=== PATIENT | male | born 1945 | race Caucasian/White ===

== ENCOUNTER → 2018-11-05 | Day surgery (SDC) | payer MEDICARE ==
[~2018-11-05] MED LIST: ALBUTEROL0.63 MG/3 INH; ASPIRIN325 MG PO; CETIRIZINE HCL10 MG PO; FLONASE; FOLIC ACID1 MG PO; GABAPENTIN300 MG PO; LOSARTAN POTASS25 MG PO; MIDAZOLAM HCL 2 MG/2 ML VIAL ONE; OMEPRAZOLE40 MG PO; OR PHACO EYE KIT ONE; PREOP PHACO EYE KIT ONE; SIMVASTATIN20 MG PO; SYMBICORT 16010.2 GM INH; TIZANIDINE HCL4 MG PO; TRAZODONE HCL50 MG PO; TYLENOL WITH C1 EACH PO; VIAGRA50 MG PO; VIT D2 PO; VITAMIN B-121000 MCG PO
[2018-11-05 11:45] VITALS: BP 155/72
== END | disposition home or self-care (01) ==
LOC: OR 14:57
PROVIDERS: ATTEND Ophthalmology
DX: H25.11 Age-related nuclear cataract, right eye (principal); I10 Essential (primary) hypertension; M06.9 Rheumatoid arthritis, unspecified; R00.1 Bradycardia, unspecified; E78.2 Mixed hyperlipidemia; J44.9 Chronic obstructive pulmonary disease, unspecified; M54.9 Dorsalgia, unspecified; F17.210 Nicotine dependence, cigarettes, uncomplicated; F32.9 Major depressive disorder, single episode, unspecified; Z88.8 Allergy status to other drugs, medicaments and biological substances; Z91.041 Radiographic dye allergy status; Z79.82 Long term (current) use of aspirin
CPT/HCPCS: 66984; J2250; V2632